=== PATIENT | male | born 1965 | race Caucasian/White ===

== ENCOUNTER 2019-03-17 14:02 | Inpatient (IN) | payer OTHER ==
[~2019-03-17] VITALS: Ht 177.8 cm; Wt 120.5 kg
[2019-03-19 12:21] VITALS: BP 126/87
== END 2019-03-19 13:24 | disposition home or self-care (01) | DRG 579 ==
LOC: ED 14:56 → EDIP 17:09 → 4NOR 19:35 → DCLOUNGE 03-19 12:49
PROVIDERS: ADMIT Family Medicine; ATTEND Family Medicine
PROC: 0JDB0ZZ Extraction of Perineum Subcutaneous Tissue and Fascia, Open Approach (ICD-10-PCS; principal; 2019-03-17)
PROC: 0J9B0ZZ Drainage of Perineum Subcutaneous Tissue and Fascia, Open Approach (ICD-10-PCS; 2019-03-17)
DX: L02.215 Cutaneous abscess of perineum (principal); G06.0 Intracranial abscess and granuloma; K65.1 Peritoneal abscess; K57.20 Diverticulitis of large intestine with perforation and abscess without bleeding; I10 Essential (primary) hypertension; E66.01 Morbid (severe) obesity due to excess calories; E86.0 Dehydration; F17.210 Nicotine dependence, cigarettes, uncomplicated; Z68.38 Body mass index [BMI] 38.0-38.9, adult
CPT/HCPCS: 36415; 96374; 99285; J3490; 49405; 72193; 80048; 80053; 82040; 83605; 85025; 87070; 87075; 87205; 99156; 99157; G0378; J0690; J2250; J2543; J2704; J2710; J3010; J0330; J2310; J7120